=== PATIENT | female | born 1970 | race Caucasian/White ===

== ENCOUNTER 2021-06-20 08:10 | Emergency (ER) | payer BC ==
[2021-06-20 09:47] LABS: HEMOGLOBIN 15.5 gm/dl (12.3-15.3); RED BLOOD COUNT 4.84 M/UL (4.00-5.10); WHITE BLOOD COUNT 11.1 K/UL (4.5-11.0)
[2021-06-20 10:47] LABS: BUN/CREATININE RATIO 28 (0-10)
[2021-06-20] MEDS ORDERED: COLACE100 MG PO (11:27)
[2021-06-20] MEDS ORDERED: ZOFRAN ODT 4 MG4 MG SL (11:27)
[2021-06-20] MEDS ORDERED: BENTYL 20MG TAB20 MG PO (11:27)
== END 2021-06-20 12:10 | disposition home or self-care (01) ==
LOC: ER1 08:10
PROVIDERS: Emergency Medicine
DX: R10.31 Right lower quadrant pain (principal); I10 Essential (primary) hypertension; E11.9 Type 2 diabetes mellitus without complications; F17.210 Nicotine dependence, cigarettes, uncomplicated
CPT/HCPCS: 80048; 81001; 83690; 85025; 87086; 96374; 96375; 99284; J2270; J2405; Q9967